=== PATIENT | female | born 1990 ===

== ENCOUNTER → 2020-05-24 | Outpatient (CLI) | payer MEDICAID ==
[2020-05-24 10:45] LABS: HCT 37.3 % (34.0-46.0); HGB 12.5 gm/dL (11.4-16.0); MCH 30.4 pg (25.0-35.0); MCHC 33.4 g/dL (31.0-37.0); Mean Platelet Volume 8.3; Platelet Count 229 k/uL (150-450); RDW 12.9 % (11.5-15.5); WBC 12.4 k/uL (3.8-10.6)
[2020-05-24 11:13] LABS: Appearance,Urine Clear (Clear); Bilirubin,Urine Negative (Negative); Blood,Urine Negative (Negative); Color,Urine Light Yellow; Glucose,Urine (UA) Negative (Negative); Ketones,Urine Negative (Negative); Leukocyte Esterase,Urine Negative (Negative); Nitrite,Urine Negative (Negative); Protein,Urine Negative (Negative); Urobilinogen,Urine <2.0 mg/dL (<2.0)
[2020-05-24 17:09] LABS: HIV 2 AB Non-Reactive (Non-Reactive); HIV AB P24 Non-Reactive (Non-Reactive); HIV P24 AG Non-Reactive (Non-Reactive)
[2020-05-24 17:26] LABS: Hemoglobin A1C 5.2 % (4.0-6.0)
[2020-05-24 17:52] LABS: Hepatitis B Surface Antigen Non-Reactive (Non-Reactive)
== END | disposition home or self-care (01) ==
LOC: LABWHC1 09:22
PROVIDERS: ATTEND Obstetrics & Gynecology Obstetrics
DX: Z34.01 Encounter for supervision of normal first pregnancy, first trimester (principal)
CPT/HCPCS: 36415; 81003; 82950; 83036; 85027; 86762; 86780; 86850; 86900; 86901; 87086; 87340; 87390